=== PATIENT | male | born 1940 | race Caucasian/White ===

== ENCOUNTER → 2017-09-27 | Outpatient (CLI) | END | disposition home or self-care (01) ==

== ENCOUNTER → 2018-11-23 | Outpatient (CLI) | payer MEDICARE, OTHER ==
[~2018-11-23] MED LIST: IODIXANOL LOCM 100 ML BTL ONE; METOPROLOL (XL) 25 MG TAB PO ONE; METOPROLOL 5 MG INJ IV ONE; NITROGLYCERIN AEROSOL (4.9 GM) ONE; SOD CHLORIDE 0.9% 100 ML ONE
== END | disposition home or self-care (01) ==
LOC: C/S 08:40
PROVIDERS: ATTEND Internal Medicine
DX: R07.9 Chest pain, unspecified (principal); I35.0 Nonrheumatic aortic (valve) stenosis
CPT/HCPCS: 75571; 75574; Q9967

== ENCOUNTER 2019-01-11 06:40 | Day surgery (SDC) | payer MEDICARE, OTHER ==
[2019-01-11] VITALS (8 sets, daily range): BP systolic 93–118; BP diastolic 51–70; PULSE 56–66; RESP 10–16; Ht 170.2 cm; Wt 75.5 kg
[~2019-01-11] VITALS: Ht 170.2 cm; Wt 75.5 kg
[~2019-01-11 06:40] MED LIST changes: +ACET-141 PO; +ACET-2047 PO; +ATOR40TA68 PO; +CELE100C PO; +DEXT50DI2 INJ; +DIAZEPAM 5 MG TAB PO ONE; +DIPHENHYDRAMINE 50 MG CAP PO ONE; +FAMO40TA5 PO; +FAMOTIDINE 20 MG TAB PO ONE; +FER325 PO; +GABA300C16 PO; -IODIXANOL LOCM 100 ML BTL ONE; +LEVO25TA6 PO; +LISI-471 PO; +LORA1TAB PO; +MAGN64TA10 PO; +METF-849 PO; -METOPROLOL (XL) 25 MG TAB PO ONE; -METOPROLOL 5 MG INJ IV ONE; -NITROGLYCERIN AEROSOL (4.9 GM) ONE; +SERT100T PO; +SIME40DR55 PO; +SOD CHLORIDE 0.45% 1,000 ML IV SCH; -SOD CHLORIDE 0.9% 100 ML ONE; +SS SC; +TEMA15CA PO
--- NOTE | 2019-01-11 11:16 | RADRPT ---
Vent Rate: 59 bpm RR Interval: 1024 msec NV Interval: 252 msec QRS Duration: 78 msec QT Interval: 429 msec QTC Interval: 424 msec P-R-T [place]: 61 - -1 - 55 degrees Sinus rhythm...normal P axis, V-rate 50- 99 Prolonged NV interval...NV >220, V-rate 50- 90 Probable anteroseptal infarct, old...Q >30mS & abn ST-T, V1-V2 Electronically Signed By: Aftab Mcnally
[2019-01-11] MEDS ORDERED: IODIXANOL LOCM 100 ML BTL ONE (11:23)
[2019-01-11] MEDS ORDERED: LIDOCAINE 1% (MDV) 20 ML INJ ONE (11:23)
[2019-01-11] MEDS ORDERED: IODIXANOL LOCM 50 ML BTL ONE (12:15)
[2019-01-11] MEDS ORDERED: SOD CHLORIDE 0.9% 1,000 ML IV SCH (12:21)
--- NOTE | 2019-01-11 12:21 | SIPON ---
Date/Time of Note Date/Time of Note DATE: 01/11/19 TIME: 12:20 Operative Report Preoperative Diagnosis 1.Chest pain 2. Postoperative Diagnosis 1. 2.non-obstructive cad Operation/Procedure Performed 1.[facility] 2.[facility] Surgeon see signature line pediatric physical therapy assistant 1.[place] Anesthesia: moderate sedation Estimated blood loss: minimal Transfusion Required none Specimen none Grafts/Implants none Complications none EMILY MONTERROSO Jan 11, 2019 12:21
[2019-01-11] MEDS ORDERED: ONDANSETRON 4 MG INJ IV PRN (12:30)
[2019-01-11] MEDS ORDERED: ACETAMINOPHEN 325 MG TAB PO PRN (12:30)
[2019-01-11] MEDS ORDERED: AL HYDROX/MG HYDROX/SIMETH 30 ML CUP PO PRN (12:30)
[2019-01-11] MEDS ORDERED: morphine 2 MG INJ IV PRN (12:30)
--- NOTE | 2019-01-11 16:54 | CARRPT ---
DATE OF PROCEDURE: 01/11/2019 TYPE OF PROCEDURES: 1. Left heart catheterization. 2. Coronary angiography. 3. Right heart catheterization. 4. Femoral angiography. 5. Moderate conscious sedation. ATTENDING PHYSICIAN: Emily Wilson MD REFERRING PHYSICIAN: Jerrica De Los Santos DO TYPE OF ANESTHESIA: Conscious and local. BRIEF HISTORY: Mr. Young is a 78-year-old male with history of hypertension, dyslipidemia, aortic stenosis, atrial fibrillation, renal cell carcinoma, chronic kidney disease who initially presented with complaints of substernal chest pain, underwent a cardiac stress test revealing positive ischemia and 2D echo revealing possible significant aortic stenosis; therefore, the patient was referred for left heart catheterization to assess for the possibility of obstructive coronary artery disease or significant aortic stenosis lending to symptoms of chest pain. DESCRIPTION OF PROCEDURE: After informed consent was obtained, the patient was brought to the [facility] cardiac catheterization lab, where he was prepped and draped in sterile fashion. A 2% lidocaine was infiltrated into the right femoral area in order to achieve adequate anesthesia. Using the modified Seldinger technique, the femoral artery was cannulated and a 6-Palauan arterial sheath was placed. A 6-Palauan JL4 catheter was used to cannulate the left main coronary ostium. With contrast injection, multiple views of the left coronary arterial system were obtained. JL4 was removed over a guidewire and a JR4 was used to cannulate the right coronary arterial ostium. With contrast injection, multiple views of the right coronary arterial system were obtained. JR4 was left in place and using a straight Bentson wire, we were able to cross into the ventricle and the JR4 crossed across the aortic valve and then exchanged for a pigtail catheter which was then placed in the ventricle used to measure left ventricular end diastolic pressure and then pulled back across the aortic valve to assess for significant gradient and removed. Subsequently at this time, a final angiographic image of the right femoral arterial insertion site was then obtained revealing the sheath to be placed a little bit inferior in the very ostium of the superficial femoral artery. Subsequently, this was then removed and manual pressure held with optimal hemostasis achieved and then the venous sheath was removed. With manual pressure, optimal hemostasis was achieved. This completed the procedure. There were no noted complications. FINDINGS: Coronary angiography: Left main is 3.5 mm, no significant focal stenoses and is short. Circumflex proximally is 3 mm vessel, shortly after takeoff has 20% stenosis then splits into circumflex continuation AV groove and obtuse marginal. Circumflex AV groove is a very small caliber vessel, no significant focal stenoses. Obtuse marginal is 2 mm vessel, no significant focal stenoses. There is a ramus branch 2 mm that covers a long territory, no significant focal stenoses. LAD proximally is a 3 mm vessel, shortly after takeoff has 30% stenosis. The LAD thereafter is a small caliber vessel and has no focal stenoses and goes around the apex. There is a proximal branching diagonal 2 mm, no significant focal stenoses and a mid branching diagonal is sub 2 mm vessel with no significant focal stenoses. Right coronary artery proximally is a 3 mm vessel and no significant focal stenoses in its proximal portion. Its midportion has a 20% stenosis. It is a dominant vessel and therefore, gives off a 2 mm PDA with no significant focal stenoses and a sub 2 mm posterolateral branch with no significant focal stenoses. Right heart catheterization: RA pressure of 7, RV pressure of 34/3, PA of 32/8, pulmonary capillary wedge of 9. LVEDP of 14. Cardiac output of 3.77. Cardiac index of 2.1 Aortic valve area 1.33, Mean Gradient 16.9 IMPRESSION: 1. Normal left and right heart filling pressures. 2. Mild to moderate nonobstructive coronary artery disease. 3. Probable moderate with mild mismatch between valve area and gradient 4. Small caliber coronary arteries without significant focal stenosis, ? diffuse disease or vasospasm RECOMMENDATIONS: In light of procedure findings at this time, we would: 1. Maximize medical management. 2. Aggressive risk factor reduction. 3. The patient will be readmitted to same day surgery center for post-cath observation and continued management of symptoms with probable discharge later this afternoon. Dictated By: EMILY FLAHERTY/VERNON Conf#: [id number] DID#: [id number] EDE
== END 2019-01-11 18:24 | disposition home or self-care (01) ==
LOC: SDS 06:40
PROVIDERS: ATTEND Internal Medicine
DX: I35.0 Nonrheumatic aortic (valve) stenosis (principal); I48.91 Unspecified atrial fibrillation; I25.10 Atherosclerotic heart disease of native coronary artery without angina pectoris; I10 Essential (primary) hypertension; E78.00 Pure hypercholesterolemia, unspecified
CPT/HCPCS: 71045; 80048; 80061; 82962; 85025; 85610; 85730; 93005; 93460; C1887; C1894; J1644; Q9967